=== PATIENT | male | born 1995 | race Native Hawaiian/Other Pacific Islander ===

== ENCOUNTER 2018-11-27 19:18 | Emergency (ER) | payer OTHER ==
[~2018-11-27] VITALS: Ht 175.3 cm; Wt 72.6 kg
[2018-11-27 20:09] LABS: PLATELET COUNT 218 K/uL (142-355)
[2018-11-27 21:09] VITALS: BP 144/92; TEMP 101.1
== END 2018-11-27 21:09 | disposition home or self-care (01) ==
LOC: ED 19:18
PROVIDERS: Family Medicine
DX: L03.114 Cellulitis of left upper limb (principal); L30.8 Other specified dermatitis; S50.862A Insect bite (nonvenomous) of left forearm, initial encounter
CPT/HCPCS: 36415; 80053; 80307; 85027; 96372; 99283; J2930